=== PATIENT | male | born 1955 | race Caucasian/White ===

== ENCOUNTER 2020-07-18 01:42 | Observation (INO) | payer OTHER, MEDICARE ==
[~2020-07-18] VITALS: Ht 182.9 cm; Wt 110.2 kg
[2020-07-18] VITALS (7 sets, daily range): BP systolic 103–139; BP diastolic 61–80
[2020-07-18] MEDS ORDERED: GLUCOSAMINE1000 MG PO (02:17)
[2020-07-18] MEDS ORDERED: ASA81BEC PO (02:17)
[2020-07-18] MEDS ORDERED: OMEPRAZOLE20 M2 PO (02:18)
[2020-07-18] MEDS ORDERED: NEURONTIN300 MG PO (02:18)
[2020-07-18] MEDS ORDERED: MELOXICAM15 MG PO (02:18)
[2020-07-18] MEDS ORDERED: PIOGLITAZONE15 MG (02:19)
[2020-07-18] MEDS ORDERED: ROSUVASTATIN CA10 MG PO (02:19)
[2020-07-18 03:08] LABS: ABSOLUTE NEUTROPHILS 10.3 thou/uL (1.4-8.2); BASOPHILS 0.2 % (0.0-2.0); HEMATOCRIT 40.1 % (42.0-52.0); HEMOGLOBIN 13.1 gm/dL (14.0-18.0); LYMPHOCYTES 4.5 % (24.0-44.0); MCH 29.9 pg (26.0-34.0); MCHC 32.5 g/dL (28.0-37.0); MCV 91.8 fL (80.0-100.0); PLATELET COUNT 195 thou/uL (150-400); POLYS 92.3 % (36.0-66.0); RBC 4.37 mil/uL (4.50-6.00); RDW 12.9 % (10.5-14.5); WBC 11.2 thou/uL (4.0-11.0)
[2020-07-18 03:24] LABS: ANION GAP 8 mmol/L (7-16); BUN 18 mg/dL (7-18); CALCIUM 9.3 mg/dL (8.5-10.1); CHLORIDE 105 mmol/L (98-107); CO2 25 mmol/L (21-32); GLUCOSE 176 mg/dL (74-106); SODIUM 138 mmol/L (136-145)
[2020-07-18 03:34] LABS: ALBUMIN 3.6 g/dL (3.4-5.0); MAGNESIUM 1.8 mg/dL (1.8-2.4); PHOSPHORUS 2.3 mg/dL (2.6-4.7); SGOT 19 U/L (15-37); SGPT 29 U/L (16-63); TOTAL BILIRUBIN 0.6 mg/dL (0.2-1.0); TOTAL PROTEIN 6.6 g/dL (6.4-8.2); TROPONIN-I <0.06 ng/mL (<0.06)
[2020-07-18 04:25] LABS: CHOLESTEROL 166 mg/dL (<200); HDL CHOLESTEROL 47 mg/dL (>40); LDL CHOLESTEROL 106 mg/dL (<100); TC:HDL 3.5 Ratio (Not establshd); TRIGLYCERIDE 66 mg/dL (<150); VLDL 13 mg/dL (<40)
[2020-07-18 06:23] LABS: SERUM ASSESSMENT Clear
--- NOTE | 2020-07-18 06:35 | NUR ---
PT ARRIVED TO THE UNIT AROUND 0420. A&OX4. AFIB ON THE MONITOR. STANDBY ASSIST TO BR W/ WALKER. ON 2L NC; LUNGS CLEAR. ABD SOFT, ROUND, NON TENDER. POST PARTIAL KNEE REPLACEMENT (07/16/20). MEDS GIVEN PER ORDERS. ASSESSMENTS CHARTED. OREINTATED TO UNIT; CALL LIGHT WITHIN REACH. CONTINUING TO ASSESS AND MONITOR CLOSELY.
--- NOTE | 2020-07-18 07:36 | EKG ---
[address] [address] ELECTROCARDIOGRAM REPORT Name: JEANNETTE MEEK Room #: 219-P [facility] IN M.R.#: [id number] Admission: 07/18/20 Attend Phys: Hung Mccain MD Discharge: Date of : 55 Report #: [id number] [facility] Test Date: 2020-07-18 Test Time: 07:22:01 Pat Name: JEANNETTE MEEK Department: Room: 219 Gender: M Associate Director Data & Analytics: SBULOSMAN : 1955 Requested By: David Davenport Order Number: [id number] : Good Albright Measurements Intervals [place] Rate: 84 P: GA: QRS: 31 QRSD: 88 T: 25 QT: 370 QTc: 438 Interpretive Statements Atrial fibrillation No previous ECG available for comparison Electronically Signed On 07-18-2020 7:36:19 CHEMICAL SPRAYER by Good Albright [email or web address] <ELECTRONICALLY SIGNED> By: Good Albright MD, [facility] 07/18/2036 1 1 Good Albright MD, FACC /EPI
--- NOTE | 2020-07-18 09:15 | 2DMMODE ---
[facility] [place] [address] 2 D/M-MODE ECHOCARDIOGRAM Name: JEANNETTE MEEK Room #: 219-P ADM IN M.R.#: [id number] Admission: 07/18/20 Attend Phys: Yoel Alarcon MD, Discharge: Date of : 55 Report #: [id number] THIS REPORT FOR: cc: Crispin Rand MD, Thomas L. MD Santiago, Patrick MD [facility] ~ ADDENDUM APPROVED REPORT Study performed: 07/18/2020 08:04:47 EXAM: Comprehensive 2D, Doppler, and color-flow Echocardiogram Patient Location: In-Patient Room #: 219 Status: routine BSA: 2.31 HR: 84 bpm BP: 139/79 mmHg Rhythm: Atrial Fibrillation Other Information Study Quality: Adequate Risk Factors: Cardiac Risk Factors: HTN Indications Atrial Fibrillation 2D Dimensions IVSd: 11.97 (7-11mm) LVOT Diam: 21.93 (18-24mm) LVDd: 46.72 mm PWd: 8.34 (7-11mm) Ascending Ao: 31.98 (22-36mm) LVDs: 27.22 (25-40mm) Left Atrium: 43.48 (27-40mm) Aortic Root: 32.56 mm IVC: 20.00 mm Volumes Left Atrial Volume (Systole) Single Plane 4CH: 62.78 mL Single Plane 2CH: 85.15 mL LA ESV Index: 36.00 mL/m2 Aortic Valve AoV Peak Zay.: 1.58 m/s AO Peak Gr.: 11.14 mmHg LVOT Max P.73 mmHg [facility] [address] [place] [address] 2 D/M-MODE ECHOCARDIOGRAM Name: JEANNETTE MEEK Room #: 219-P [facility] IN ..#: [id number] Admission: 07/18/20 Attend Phys: Yoel Alarcon, Discharge: Date of : 55 Report #: [id number] LVOT Max V: 0.97 m/s CORBIN Vmax: 2.30 cm2 Mitral Valve MV Peak Gr.: 6.89 mmHg MV Mean Gr.: 2.56 mmHg E/A Ratio: 96.0 MV Decel. Time: 223.17 ms MV E Max Zay.: 0.96 m/s MV A Zay.: 0.01 m/s MV Max Zay.: 1.31 m/s MV Mean Zay.: 0.69 m/s MV VTI: 323.05 mm MV PHT: 64.72 ms MVA (PHT): 2.65 cm2 Pulmonary Valve PV Peak Zay.: 0.97 m/s PV Peak Gr.: 3.81 mmHg Tricuspid Valve TR Peak Zay.: 2.45 m/s RAP Estimate: 5.00 mmHg TR Peak Gr.: 23.98 mmHg RVSP: 39.00 mmHg Left Ventricle The left ventricle is normal size. There is normal left ventricular wall thickness. The left ventricular systolic function is normal. The left ventricular ejection fraction is within the normal range. LVEF is 65-70%. Right Ventricle The right ventricle is normal size. The right ventricular systolic function is normal. Atria Left atrium is dilated. The right atrium size is normal. Aortic Valve The aortic valve is normal in structure. No aortic regurgitation is present. There is no aortic valvular stenosis. Mitral Valve The mitral valve is normal in structure. Trace l regurgitation. No evidence of mitral valve stenosis. Tricuspid Valve The tricuspid valve is normal in structure. Trace to mild tricuspid regurgitation. [facility] [address] [place] [address] 2 D/M-MODE ECHOCARDIOGRAM Name: JEANNETTE MEEK Room #: 219-P [facility] IN .R.#: [id number] Admission: 07/18/20 Attend Phys: Yoel Alarcon, Discharge: Date of : 55 Report #: [id number] Pulmonic Valve Pulmonic valve is not well visualized. There is no pulmonic valvular regurgitation. Great Vessels The aortic root is normal in size. IVC is normal in size and collapses >50% with inspiration. Pericardium There is no pericardial effusion. <Conclusion> Normal left ventricular size/wall thickness EF 65% Normal right ventricular size Mildly dilated left atrium Color-flow/ Doppler study was performed of the aortic/mitral/tricuspid/pulmonary valve Trace mitral valve insufficiency Trace tricuspid valve insufficiency No pericardial effusion <ELECTRONICALLY SIGNED> By: Good Albright MD, FACC 07/18/20914 4 4 Good Albright MD, FAC /INF
--- NOTE | 2020-07-18 14:56 | EKG ---
[address] [address] ELECTROCARDIOGRAM REPORT Name: JEANNETTE MEEK Room #: 219-[facility]..#: [id number] Admission: 07/18/20 Attend Phys: Yoel Alarcon MD, Discharge: Date of : 55 Report #: [id number] [facility] ED Test Date: 2020-07-18 Test Time: 01:59:17 Pat Name: JEANNETTE MEEK Department: Room: 219 P Gender: M Nurse Practitioner Physicians Assistant: kenisha deutsch : 1955 Requested By: Yoel Alarcon Order Number: [id number] MD: Good Albright Measurements Intervals [place] Rate: 139 P: ID: QRS: 29 QRSD: 82 T: 3 QT: 309 QTc: 470 Interpretive Statements Atrial fibrillation No previous ECG available for comparison Electronically Signed On 07-18-2020 14:56:11 WOOD SETTER by Good Albright [email or web address] <ELECTRONICALLY SIGNED> By: Good Albright MD, [facility] 07/18/20 1456 [id number] [id number] Good Albright MD, FACC /EPI
--- NOTE | 2020-07-18 14:56 | EKG ---
[address] [address] ELECTROCARDIOGRAM REPORT Name: JEANNETTE MEKE Room #: 219-P [facility]..#: [id number] Admission: 07/18/20 Attend Phys: Yoel Alarcon MD, Discharge: Date of : 55 Report #: [id number] [facility] ED Test Date: 2020-07-18 Test Time: 02:28:53 Pat Name: JEANNETTE MEEK Department: Room: Count includes the [facility] Gender: M Spinner Cap Frame: ANTONIO JENKINS : 1955 Requested By: David Davenport Order Number: [id number] : Good Albright Measurements Intervals [place] Rate: 83 P: ID: QRS: 28 QRSD: 85 T: 25 QT: 372 QTc: 437 Interpretive Statements Atrial fibrillation Compared to ECG 07/18/2020 01:59:17 No significant changes Electronically Signed On 07-18-2020 14:56:13 QUALITY CONTROL AUDITOR by Good Albright [email or web address] <ELECTRONICALLY SIGNED> By: Good Albright MD, [facility] 07/18/20 1456 0228 0228 Good Albright MD, FACC /EPI
[2020-07-18] MEDS ORDERED: TOPROL XL100 MG PO (16:23)
[2020-07-18] MEDS ORDERED: XARELTO20 MG PO (16:24)
--- NOTE | 2020-07-18 18:38 | NUR ---
RECEIVED PT'S CARE AROUND 0738; PT. ON BED; ALERT; DURING AM ASSESSMENT PT. AOX4; NO C/O PAIN; AM MEDICATION GIVEN; EDUCATED ABOUT NEW MEDICATION; EDUCATED ABOUT CALLING BEFORE GETTING UP FROM BED; ST. UNDERSTANDING; AFIB ON THE MONITOR; THROUGH THE DAY NO C/O HEADACHE OR SOB; DURING THE EVENING DR. DENIA PHAM ON PT.; ORDERS RECEIVED; IV LOPRESSOR GIVEN ONE TIME; UP TO THE CHAIR; WORKED WITH PT AND OT; ASSESSMENT CHARGED; FOLLOWING POC; WILL PASS ON REPORT;
[2020-07-19 00:06] LABS: GLYCOHEMOGLOBIN (HGB A1C) 5.7 % (4.8-5.6)
[2020-07-19 04:29] VITALS: BP 102/77
[2020-07-19] MEDS ORDERED: PACERONE 200 M200 M1 PO (08:37)
[2020-07-19] MEDS ORDERED: TOPROL XL100 MG PO (10:49)
[2020-07-19 10:53] VITALS: BP 102/77
[2020-07-19] MEDS ORDERED: ASPIR-TRIN325 MG PO (10:53)
--- NOTE | 2020-07-19 12:01 | NUR ---
PT DISCHARGED HOME AT THIS TIME. HE IS ALERT ORIENTED X4. UP WITH WALKER. EDUCATED ON PAIN MEDICATIONS AND OTHER MEDS ON DISCHARGED. HE DID VOICED UNDERSTANDING.
== END 2020-07-19 11:27 | disposition home or self-care (01) ==
LOC: ER 01:42 → 2N 02:33 → EROBS 02:33 → 2N 04:13
PROVIDERS: Emergency Medicine; Nurse Practitioner Family; ADMIT Internal Medicine Cardiovascular Disease; ATTEND Internal Medicine Cardiovascular Disease
DX: I48.20 Chronic atrial fibrillation, unspecified (principal); M17.12 Unilateral primary osteoarthritis, left knee; E78.5 Hyperlipidemia, unspecified; G47.33 Obstructive sleep apnea (adult) (pediatric); R73.9 Hyperglycemia, unspecified; Z79.899 Other long term (current) drug therapy; Z87.891 Personal history of nicotine dependence; Z20.828 Contact with and (suspected) exposure to other viral communicable diseases

== ENCOUNTER → 2020-07-25 | Outpatient (CLI) | payer OTHER, MEDICARE ==
[~2020-07-25] MED LIST: ASA81BEC PO; ASPIR-TRIN325 MG PO; GLUCOSAMINE1000 MG PO; MELOXICAM15 MG PO; NEURONTIN300 MG PO; OMEPRAZOLE20 M2 PO; PACERONE 200 M200 M1 PO; PIOGLITAZONE15 MG; ROSUVASTATIN CA10 MG PO; TOPROL XL100 MG PO; XARELTO20 MG PO
== END ==
LOC: SJCVC 13:08
PROVIDERS: ATTEND Internal Medicine Cardiovascular Disease
DX: I45.10 Unspecified right bundle-branch block (principal); R94.31 Abnormal electrocardiogram [ECG] [EKG]; I48.0 Paroxysmal atrial fibrillation; E78.00 Pure hypercholesterolemia, unspecified; M19.90 Unspecified osteoarthritis, unspecified site; Z79.82 Long term (current) use of aspirin; Z79.899 Other long term (current) drug therapy; Z87.891 Personal history of nicotine dependence

== ENCOUNTER → 2020-11-17 | Outpatient (CLI) | payer OTHER, MEDICARE | LOC: SJCVCIMAG 10:08 | PROVIDERS: ATTEND Internal Medicine Cardiovascular Disease | DX: R00.1 Bradycardia, unspecified (principal); R53.83 Other fatigue; I48.91 Unspecified atrial fibrillation; E78.5 Hyperlipidemia, unspecified; Z79.899 Other long term (current) drug therapy ==

== ENCOUNTER → 2020-11-17 | Outpatient (CLI) | payer OTHER | LOC: CAT 12:48 | PROVIDERS: ATTEND Internal Medicine Cardiovascular Disease | DX: Z13.6 Encounter for screening for cardiovascular disorders (principal) ==